=== PATIENT | female | born 2000 | race Two or more races ===

== ENCOUNTER 2021-07-18 13:28 | Emergency (ER) | payer OTHER, MEDICAID ==
[~2021-07-18] VITALS: Ht 165.1 cm; Wt 63.0 kg
[2021-07-18 13:54] VITALS: BP 113/73
[2021-07-18] MEDS ORDERED: ondansetron 4mg rapidly disintigrating tab PO ONE (14:30)
[2021-07-18] MEDS ORDERED: azithromycin 250mg tablet PO ONE (14:30)
[2021-07-18] MEDS ORDERED: AZIT250T PO (14:35)
[2021-07-18] MEDS ORDERED: ONDA4TAB12 PO (14:35)
== END 2021-07-18 14:51 | disposition home or self-care (01) ==
LOC: ER 13:29
DX: J20.9 Acute bronchitis, unspecified (principal); Z79.2 Long term (current) use of antibiotics
CPT/HCPCS: 99283